=== PATIENT | female | born 1995 | race Two or more races ===

== ENCOUNTER 2018-11-29 23:34 | Emergency (ER) | payer OTHER ==
[~2018-11-29] VITALS: Ht 154.9 cm; Wt 80.7 kg
[~2018-11-29 23:34] MED LIST: CLARITIN10 M2 ORAL; DICYCLOMINE HCL10 MG PO; LOPERAMIDE2 MG PO
--- NOTE | 2018-11-29 23:46 | NUR ---
ED Nurse Note: PT walked in c/o allergy sx since this afternoon, reports increase in sneezing and nasal congestion, and headache. noted mild nasal congestion, resp even and unlabored on RA, airway intact, will cont monitor.
[2018-11-29 23:52] VITALS: BP 121/84
--- NOTE | 2018-11-30 00:11 | Emergency Room Report ---
History of Present Illness General Chief Complaint: Allergies Source: Patient Present Illness HPI Patient presents with increased nasal congestion that began earlier today. She has a history of allergic rhinitis. It's episodic. Doesn't seem to be related to pollen per se. She does have a dog at home and doesn't believe it's related to her dog. She denies any fevers or chills. There's no sore throat. Denies any vomiting or diarrhea. She's not dizzy. No ear pain. She's not wheezing. She denies rashes. In the past she's used Nasonex many years ago. Recently she was using loratadine. Mom states she has had a long history of allergies. Last period was normal and there is no dysuria. Allergies: Coded Allergies: No Known Allergies (Unverified , 08/03/18) Patient History Past Medical History: see triage record Social History: Denies: smoking, alcohol use, drug use Social History Narrative student Last Menstrual Period: 11/23/18 Now: No Reviewed Nursing Documentation: PMH: Agreed; PSxH: Agreed Nursing Documentation-PMH Past Medical History: No Stated History Review of Systems All Other Systems: negative except mentioned in HPI Physical Exam Vital Signs Date Time Temp Pulse Resp B/P (MAP) Pulse Ox O2 Delivery O2 Flow Rate FiO2 11/29/18 23:37 98.1 92 16 120/83 (95) 99 Room Air Sp02 EP Interpretation: reviewed, normal General Appearance: well appearing, no apparent distress, GCS 15 Head: normocephalic, atraumatic Eyes: bilateral eye normal inspection, bilateral eye PERRL, bilateral eye EOMI ENT: hearing grossly normal, normal pharynx, no angioedema, normal voice, other - Clear nasal discharge w polyps identified. Cerumen left TM right is normal Neck: full range of motion, supple Respiratory: lungs clear, normal breath sounds, no respiratory distress, speaking full sentences Cardiovascular #1: regular rate, rhythm Cardiovascular #2: 2+ radial (R) Gastrointestinal: normal inspection Genitourinary: no CVA tenderness Musculoskeletal: digits/nails normal, gait/station normal, normal range of motion Neurologic: alert, oriented x3, normal gait, grossly normal Psychiatric: mood/affect normal Skin: no rash Medical Decision Making Diagnostic Impression: Primary Impression: Allergic rhinitis Qualified Codes: J30.9 - Allergic rhinitis, unspecified ER Course Patient presents with nasal congestion. Differential includes allergic rhinitis , viral infection, sinusitis amongst others. Clinically this appears to be all allergy related. The patient will be treated with Afrin here. Discussed with patient to need to keep a log. In addition I suggested that she get allergy testing. Patient stable for outpatient observation and treatment. Last Vital Signs Date Time Temp Pulse Resp B/P (MAP) Pulse Ox O2 Delivery O2 Flow Rate FiO2 11/30/18 00:24 98.0 79 16 118/76 98 Room Air Status: improved Disposition: HOME, SELF-CARE Condition: Improved Scripts Oxymetazoline HCl (Afrin) 15 Ml [place] 2 SPRAY NASAL TWICE A DAY, #1 UNIT Prov: Sterling Epperson MD 11/30/18 Mometasone Furoate (NASONEX) 17 Gm [place].pump 2 SPRAYS NASAL DAILY, #1 GM 0 Refills Prov: Sterling Epperson MD 11/30/18 Chlorpheniramine Maleate (CHLOR-TRIMETON) 4 Mg Tablet 4 MG PO Q6HR, #20 TAB Prov: Sterling Epperson MD 11/30/18 Referrals: LIBERTAD CHOUDHURY,REFERRING (PCP) Sterling Epperson MD November 30, 2018 00:11
[2018-11-30] MEDS ORDERED: AFRIN NASAL SPR30 ML NASAL (00:15)
[2018-11-30] MEDS ORDERED: NASONEX17 GM NASAL (00:15)
[2018-11-30] MEDS ORDERED: Oxymetazoline 0.05% Na Spray 30ml NASAL ONE (00:15)
[2018-11-30] MEDS ORDERED: CHLOR-TRIMETON4 MG PO (00:15)
--- NOTE | 2018-11-30 00:23 | NUR ---
ED Nurse Note: PT cleared to be d/c per ERMD, pt discharge and aftercare instruction provided w/ prescription, pt education done via discussion and handout, pt advised to follow up with pcp or return to ed if changes in condition, pt verbalized understanding and agrees with plan, vss, ambulatory w/ steady gait, left w/ all belongings, accompanied by mother.
[2018-11-30 00:24] VITALS: BP 118/76
== END 2018-11-30 00:25 | disposition home or self-care (01) ==
LOC: EMR 23:59
DX: J30.9 Allergic rhinitis, unspecified (principal)
CPT/HCPCS: 99282